=== PATIENT | female | born 1945 | race African-American/Black ===

== ENCOUNTER 2023-01-18 18:32 | Emergency (ER) | payer SELFPAY ==
[~2023-01-18] VITALS: Ht 167.6 cm; Wt 71.0 kg
[2023-01-18 18:34] VITALS: BP 155/86
[2023-01-18] MEDS ORDERED: FLUORESCEIN SODIUM 1MG/STRIP RIGHTEYE ONE (19:00)
[2023-01-18] MEDS ORDERED: ONDANSETRON 4MG ODT PO ONE (19:00)
[2023-01-18] MEDS ORDERED: IBUPROFEN 400MG TABLET PO ONE (19:00)
[2023-01-18] MEDS ORDERED: TETRACAINE 0.5% OPHTH DROPS 4ML RIGHTEYE ONE (19:00)
[2023-01-18] MEDS ORDERED: IBUP-2028 MT (21:59)
== END 2023-01-19 00:39 | disposition home or self-care (01) ==
LOC: ER 18:32
DX: S00.03XA Contusion of scalp, initial encounter (principal); H57.11 Ocular pain, right eye; I10 Essential (primary) hypertension; E78.00 Pure hypercholesterolemia, unspecified; Y92.9 Unspecified place or not applicable; W01.0XXA Fall on same level from slipping, tripping and stumbling without subsequent striking against object, initial encounter; Y93.89 Activity, other specified
CPT/HCPCS: 70450; 70480; 72125; 72128; 99284; Q0162